=== PATIENT | female | born 1980 | race Caucasian/White ===

== ENCOUNTER → 2020-09-05 | Outpatient (CLI) | payer MEDICAID ==
[2020-09-05 14:59] LABS: Basophils # (A) 0.06 X 10*3/uL (0.00-0.10); Basophils % (A) 0.7 %; Eosinophils # (A) 0.33 X 10*3/uL (0.04-0.35); Eosinophils % (A) 3.6 %; HGB 12.8 g/dL (12.0-15.0); Lymphocytes # (A) 1.87 X 10*3/uL (0.90-5.00); Lymphocytes % (A) 20.5 %; MCH 30.7 pg (27.0-32.0); MCHC 32.8 g/dL (32.0-37.0); MCV 93.5 fL (80.0-97.0); Mean Platelet Volume 11.4 fL (9.5-12.2); Monocytes # (A) 0.42 X 10*3/uL (0.20-1.00); Monocytes % (A) 4.6 %; Neutrophils # (A) 6.42 X 10*3/uL (1.80-7.70); Neutrophils % (A) 70.4 %; Platelet Count 268 X 10*3/uL (140-440); RBC 4.17 X 10*6/uL (4.10-5.20); RDW 12.9 % (11.5-14.5); WBC 9.12 X 10*3/uL (4.50-10.00)
[2020-09-05 15:42] LABS: African American GFR (CKD) 93.4 (60.0-200.0); Albumin 4.5 g/dL (3.80-4.90); Albumin/Globulin Ratio 1.8 (1.60-3.17); Anion Gap 6.5 mmol/L (4.00-12.00); BUN/Creat Ratio 16.67 Ratio (12.00-20.00); Calcium 9.3 mg/dL (8.7-10.3); Carbon Dioxide 27.5 mmol/L (21.6-31.8); Chol/HDL Ratio 3.33; Globulin 2.5 g/dL (1.6-3.3); LDL Cholesterol,Calculated 120.8 mg/dL (0.0-131.0); Non-African American GFR(CKD) 80.5 (60.0-200.0); Potassium 4.6 mmol/L (3.5-5.5); Total Bilirubin 0.5 mg/dL (0.3-1.2); VLDL Calculation 14.2 mg/dL (5.00-40.00)
== END | disposition home or self-care (01) ==
LOC: LABWHC1 08:48
PROVIDERS: ATTEND Family Medicine
DX: Z00.00 Encounter for general adult medical examination without abnormal findings (principal)
CPT/HCPCS: 36415; 80053; 80061; 84443; 85025

== ENCOUNTER → 2020-10-05 | Outpatient (CLI) | payer MEDICAID ==
[2020-10-06 00:43] LABS: ALT 21 U/L (8-44); AST 19 U/L (13-35); African American GFR (CKD) 107.6 (60.0-200.0); Alkaline Phosphatase 44 U/L (41-126); BUN/Creat Ratio 23.75 Ratio (12.00-20.00); C Reactive Protein <0.4 mg/dL (0.0-0.8); Calcium 9.4 mg/dL (8.7-10.3); Carbon Dioxide 25.4 mmol/L (21.6-31.8); Chloride 105 mmol/L (96-109); Globulin 2.3 g/dL (1.6-3.3); Glucose 120 mg/dL (70-110); Non-African American GFR(CKD) 92.9 (60.0-200.0); Potassium 4.2 mmol/L (3.5-5.5); Sodium 140 mmol/L (135-145); Total Bilirubin 0.6 mg/dL (0.3-1.2); Total Protein 6.9 g/dL (6.2-8.2)
[2020-10-06 03:28] LABS: Hepatitis A Antibody IgM Non-Reactive (Non-Reactive); Hepatitis B Core IgM Non-Reactive (Non-Reactive); Hepatitis B Surface Antigen Non-Reactive (Non-Reactive); Hepatitis C IgG Antibody Non-Reactive (Non-Reactive)
[2020-10-06 03:53] LABS: Basophils # (A) 0.04 X 10*3/uL (0.00-0.10); Basophils % (A) 0.4 %; Eosinophils # (A) 0.29 X 10*3/uL (0.04-0.35); HCT 40.1 % (37.2-46.3); HGB 12.5 g/dL (12.0-15.0); Lymphocytes # (A) 2.31 X 10*3/uL (0.90-5.00); Lymphocytes % (A) 23.8 %; MCH 30.5 pg (27.0-32.0); MCHC 31.2 g/dL (32.0-37.0); MCV 97.8 fL (80.0-97.0); Mean Platelet Volume 11.7 fL (9.5-12.2); Monocytes # (A) 0.53 X 10*3/uL (0.20-1.00); Monocytes % (A) 5.5 %; Neutrophils # (A) 6.49 X 10*3/uL (1.80-7.70); Platelet Count 241 X 10*3/uL (140-440); WBC 9.69 X 10*3/uL (4.50-10.00)
[2020-10-06 05:01] LABS: Erythrocyte Sedimentation Rate 13 mm/Hr (0-20)
== END | disposition home or self-care (01) ==
LOC: LABWHC1 12:20
PROVIDERS: ATTEND Physician Assistant
DX: K50.90 Crohn's disease, unspecified, without complications (principal)
CPT/HCPCS: 36415; 80053; 80074; 85025; 85652; 86140; 86480

== ENCOUNTER 2020-11-24 10:07 | Emergency (ER) | payer MEDICAID ==
[2020-11-24 10:15] VITALS: RESP 18
[2020-11-24] MEDS ORDERED: SODIUM CHLORIDE 0.9% 1,000 ML IV STA (10:51)
--- NOTE | 2020-11-24 11:03 | ED ---
Female Urogenital HPI - General Chief complaint: Vaginal Bleeding Stated complaint: Miscarriage Time Seen by Provider: 11/24/20 10:40 Source: patient, RN notes reviewed Mode of arrival: ambulatory Limitations: no limitations - History of Present Illness Initial comments: 40-year-old white female presents to the emergency room with complaints of cramping last night with vaginal bleeding this morning. Patient states she took a test on and it was positive. Her last menstrual period was October 18. Patient in the past has tried fertility treatments and was unsuccessful. Patient states by date she is approximately 5 and half weeks . The bleeding is not severe and patient is only wearing a panty liner, but more than spotting. She states walking makes the pain worse with laying flat makes it better. She has not passed any tissue. Reports some nausea, denies any vomiting or diarrhea denies any hematochezia or hematemesis Patient states she has a history of Crohn's disease with a bowel resection in 2000. Patient states recently started her Remicade last week. Sees Dr. Barrios for GI issues. He denies current smoking or drinking history MD Complaint: vaginal bleeding -: hour(s) (this morning) Severity scale (1-10): 6 Quality: cramping Consistency: intermittent Worsens with: movement (Came standing) Last Menstrual Period: 10/18/20 Patient : Yes Number of weeks : 5 (Confirmed) Associated Symptoms: denies other symptoms - Related Data Sexually active: Yes (P in home tests) Home Medications Medication Instructions Recorded Confirmed No Known Home Medications 11/24/20 11/24/20 Allergies Allergy/AdvReac Type Severity Reaction Status Date / Time No Known Allergies Allergy Verified 11/24/20 11:34 Review of Systems ROS Statement: Those systems with pertinent positive or pertinent negative responses have been documented in the HPI. ROS Other: All systems not noted in ROS Statement are negative. Past Medical History Additional Past Medical History / Comment(s): chrohns History of Any Multi-Drug Resistant Organisms: None Reported Past Surgical History: Bowel Resection Past Psychological History: No Psychological Hx Reported Smoking Status: Light tobacco smoker Past Alcohol Use History: Occasional Past Drug Use History: None Reported General Exam Limitations: no limitations General appearance: alert, in no apparent distress Head exam: Present: atraumatic, normocephalic, normal inspection Eye exam: Present: normal appearance, PERRL, EOMI. Absent: scleral icterus, conjunctival injection, periorbital swelling ENT exam: Present: normal exam, normal oropharynx, mucous membranes moist Neck exam: Present: normal inspection, full ROM. Absent: tenderness, meningismus, lymphadenopathy, thyromegaly Respiratory exam: Present: normal lung sounds bilaterally. Absent: respiratory distress, wheezes, rales, rhonchi, stridor, chest wall tenderness, accessory muscle use, decreased breath sounds Cardiovascular Exam: Present: regular rate, normal rhythm, normal heart sounds. Absent: systolic murmur, diastolic murmur, rubs, gallop, clicks GI/Abdominal exam: Present: soft, tenderness, normal bowel sounds. Absent: distended, guarding, rebound, rigid, mass Rectal exam: Absent: deferred External exam: Present: normal external exam. Absent: erythema, swelling, lesions, lacerations, ecchymosis Speculum exam: Present: vaginal bleeding, other (Cervical os open, small amount of bleeding noted, no tissue no clots). Absent: erythema, foreign body, tissue, laceration Extremities exam: Present: normal inspection, full ROM, normal capillary refill. Absent: tenderness, pedal edema, joint swelling, calf tenderness Back exam: Present: normal inspection, full ROM. Absent: tenderness, CVA tenderness (R), CVA tenderness (L) Neurological exam: Present: alert, oriented X3, CN II-XII intact Psychiatric exam: Present: normal affect, normal mood, other (Tearful) Skin exam: Present: warm, dry, intact, normal color. Absent: rash Course Vital Signs 11/24/20 11/24/20 10:10 12:55 Temperature 97.4 F L 98.3 F Pulse Rate 85 82 Respiratory 18 18 Rate Blood Pressure 141/94 120/83 O2 Sat by Pulse 100 97 Oximetry Medical Decision Making - Medical Decision Making Serum-HCG is 163.8, hemoglobin and hematocrit is 14 and 41 respectively. Ultrasound shows no gestational sac no yolk sac and no pole. Patient does have a history of a left ovarian cyst, which is remarked on ultrasound. Patient will be directed to follow for serial serum hCG days and referred to BUS TRANSPORTATION MANAGER. Patient's blood type is A positive, rhogam not indicated. Patient's pain is controlled and bleeding is minimal at time of discharge. - Lab Data Result diagrams: 11/24/20 11:15 11/24/20 11:15 Lab Results 11/24/20 11/24/20 11/24/20 Range/Units 11:15 11:15 11:15 WBC 15.3 H (3.8-10.6) k/uL RBC 4.55 (3.80-5.40) m/uL Hgb 14.0 (11.4-16.0) gm/dL Hct 41.4 (34.0-46.0) % MCV 90.9 (80.0-100.0) fL MCH 30.8 (25.0-35.0) pg MCHC 33.8 (31.0-37.0) g/dL RDW 12.6 (11.5-15.5) % Plt Count 263 (150-450) k/uL MPV 7.8 Neutrophils % 81 % Lymphocytes % 13 % Monocytes % 3 % Eosinophils % 2 % Basophils % 0 % Neutrophils # 12.4 H (1.3-7.7) k/uL Lymphocytes # 2.0 (1.0-4.8) k/uL Monocytes # 0.5 (0-1.0) k/uL Eosinophils # 0.3 (0-0.7) k/uL Basophils # 0.1 (0-0.2) k/uL PT 10.4 (9.0-12.0) sec INR 1.0 (<1.2) Sodium 140 (137-145) mmol/L Potassium 4.2 (3.5-5.1) mmol/L Chloride 106 (98-107) mmol/L Carbon Dioxide 23 (22-30) mmol/L Anion Gap 11 mmol/L BUN 21 H (7-17) mg/dL Creatinine 0.77 (0.52-1.04) mg/dL Est GFR (CKD-EPI)AfAm >90 (>60 ml/min/1.73 sqM) Est GFR (CKD-EPI)NonAf >90 (>60 ml/min/1.73 sqM) Glucose 90 (74-99) mg/dL Calcium 9.3 (8.4-10.2) mg/dL Magnesium 1.9 (1.6-2.3) mg/dL Total Bilirubin 0.6 (0.2-1.3) mg/dL AST 26 (14-36) U/L ALT 19 (4-34) U/L Alkaline Phosphatase 46 (38-126) U/L Total Protein 8.0 (6.3-8.2) g/dL Albumin 4.8 (3.5-5.0) g/dL HCG, Quant 163.8 mIU/mL Urine HCG, Qual (Not Detectd) Blood Type Blood Type Recheck Bld Type Recheck Status Antibody Screen Spec Expiration Date 11/24/20 11/24/20 Range/Units 11:15 11:15 WBC (3.8-10.6) k/uL RBC (3.80-5.40) m/uL Hgb (11.4-16.0) gm/dL Hct (34.0-46.0) % MCV (80.0-100.0) fL MCH (25.0-35.0) pg MCHC (31.0-37.0) g/dL RDW (11.5-15.5) % Plt Count (150-450) k/uL MPV Neutrophils % % Lymphocytes % % Monocytes % % Eosinophils % % Basophils % % Neutrophils # (1.3-7.7) k/uL Lymphocytes # (1.0-4.8) k/uL Monocytes # (0-1.0) k/uL Eosinophils # (0-0.7) k/uL Basophils # (0-0.2) k/uL PT (9.0-12.0) sec INR (<1.2) Sodium (137-145) mmol/L Potassium (3.5-5.1) mmol/L Chloride (98-107) mmol/L Carbon Dioxide (22-30) mmol/L Anion Gap mmol/L BUN (7-17) mg/dL Creatinine (0.52-1.04) mg/dL Est GFR (CKD-EPI)AfAm (>60 ml/min/1.73 sqM) Est GFR (CKD-EPI)NonAf (>60 ml/min/1.73 sqM) Glucose (74-99) mg/dL Calcium (8.4-10.2) mg/dL Magnesium (1.6-2.3) mg/dL Total Bilirubin (0.2-1.3) mg/dL AST (14-36) U/L ALT (4-34) U/L Alkaline Phosphatase (38-126) U/L Total Protein (6.3-8.2) g/dL Albumin (3.5-5.0) g/dL HCG, Quant mIU/mL Urine HCG, Qual Detected (Not Detectd) Blood Type A Positive Blood Type Recheck No Previous Record Bld Type Recheck Status CABO Indicated Antibody Screen NEGATIVE Spec Expiration Date 11/27/20202314 Disposition Clinical Impression: Threatened Disposition: HOME SELF-CARE Condition: Good Instructions (If sedation given, give patient instructions): Threatened Miscarriage (ED) Additional Instructions: Follow-up with BUS TRANSPORTATION MANAGER this week and have blood work serum hCG redrawn in 2 days. Return if increased bleeding or pain. Is patient prescribed a controlled substance at d/c from ED?: No Referrals: Brad Cho MD [Primary Care Provider] - 1-2 days Manda López DO [Doctor of Osteopathic Medicine] - 1-2 days Time of Disposition: 13:10
[2020-11-24 11:29] LABS: Basophils # (A) 0.1 k/uL (0-0.2); Basophils % (A) 0 %; Eosinophils # (A) 0.3 k/uL (0-0.7); Eosinophils % (A) 2 %; HCT 41.4 % (34.0-46.0); Lymphocytes % (A) 13 %; MCH 30.8 pg (25.0-35.0); MCHC 33.8 g/dL (31.0-37.0); MCV 90.9 fL (80.0-100.0); Mean Platelet Volume 7.8; Monocytes # (A) 0.5 k/uL (0-1.0); Monocytes % (A) 3 %; Neutrophils # (A) 12.4 k/uL (1.3-7.7); Neutrophils % (A) 81 %; Platelet Count 263 k/uL (150-450); RBC 4.55 m/uL (3.80-5.40); RDW 12.6 % (11.5-15.5); WBC 15.3 k/uL (3.8-10.6)
[2020-11-24 12:00] LABS: ALT 19 U/L (4-34); AST 26 U/L (14-36); African American GFR (CKD) >90 (>60 ml/min/1.73 sqM); Albumin 4.8 g/dL (3.5-5.0); Alkaline Phosphatase 46 U/L (38-126); Anion Gap 11 mmol/L; Blood Urea Nitrogen 21 mg/dL (7-17); Calcium 9.3 mg/dL (8.4-10.2); Carbon Dioxide 23 mmol/L (22-30); Chloride 106 mmol/L (98-107); Glucose 90 mg/dL (74-99); Magnesium 1.9 mg/dL (1.6-2.3); Non-African American GFR(CKD) >90 (>60 ml/min/1.73 sqM); Potassium 4.2 mmol/L (3.5-5.1); Sodium 140 mmol/L (137-145); Total Bilirubin 0.6 mg/dL (0.2-1.3)
[2020-11-24 12:16] LABS: HCG,Quantitative Serum 163.8 mIU/mL; Prothrombin Time 10.4 sec (9.0-12.0)
--- NOTE | 2020-11-24 12:33 | US ---
EXAMINATION TYPE: Transabdominal DATE OF EXAM: 11/24/2020 12:14 PM COMPARISON: NONE CLINICAL HISTORY: vaginal bleeding. EXAM PERFORMED: Transvaginal (TV) and Transabdominal (TA) EXAM MEASUREMENTS: GESTATIONAL AGE / DATING Physician Established: Not yet established Dates by LMP: ( 5 weeks/2 days) EDC: 07-25-2021 Dates by First Scan: No previous this is first scan Dates by Current Scan for: Unable to date by today's study MATERNAL ANATOMY Uterus: 8.7 x 3.4 x 5.4cm Right Ovary: 2.3 x 1.4 x 1.8cm Left Ovary: large septated cystic structure in cul de sac may be left ovary, measures 13.1 x 6.2 x 7. 3cm Post CDS / Adnexa: see above Presence of free fluid: no Presence of corpus luteal cyst: no Presence of subchorionic bleed: no GESTATION / SURVEY IUP: No IUP seen at this time Date of LMP: 10-18-20 Beta HcG (if available): 163 Heterogeneous anteverted uterus with endometrium only measures 3 mm in thickness. No gestational sac, yolk sac, or pole seen. Right ovary is seen and normal in size. Normal left ovary not identified. There is abnormality in the pelvic cul-de-sac with either nonsimple fluid or cystic lesion with thin wall and thin septa that is not completely anechoic measuring at least 13 cm long axis. Because of size it cannot be fully evalu ated on ultrasound. IMPRESSION: Findings could reflect intrauterine demise or too early to visualize intrauterine pregnan cy, ectopic not entirely excluded. Serial beta hCG and ultrasound follow-up is advised. Can not exclude blood products into the pelvic cul-de-sac, correlate clinically. Advise short-term follow -up CT and/or MRI imaging to rule out cystic left ovarian mass once possible is more defini tively assessed.
[2020-11-24 12:58] VITALS: BP 120/83; PULSE 82; TEMP 98.3
== END 2020-11-24 14:03 | disposition home or self-care (01) ==
LOC: EC 10:07
DX: O20.0 Threatened abortion (principal); O09.511 Supervision of elderly primigravida, first trimester; O99.331 Smoking (tobacco) complicating pregnancy, first trimester; F17.200 Nicotine dependence, unspecified, uncomplicated; Z3A.01 Less than 8 weeks gestation of pregnancy
CPT/HCPCS: 36415; 76801; 76817; 80053; 81025; 83735; 84702; 85025; 85610; 86850; 86900; 86901; 99284

== ENCOUNTER → 2020-11-27 | Outpatient (CLI) | payer MEDICAID | END | disposition home or self-care (01) | LOC: LABMAIN 09:20 | PROVIDERS: ATTEND Nurse Practitioner Family | DX: O20.0 Threatened abortion (principal); Z3A.00 Weeks of gestation of pregnancy not specified | CPT/HCPCS: 36415; 84702 ==

== ENCOUNTER → 2021-05-01 | Outpatient (CLI) | payer MEDICAID ==
[2021-05-01 19:59] LABS: Basophils # (A) 0.04 X 10*3/uL (0.00-0.10); Basophils % (A) 0.4 %; Eosinophils # (A) 0.38 X 10*3/uL (0.04-0.35); Eosinophils % (A) 3.3 %; HCT 39.9 % (37.2-46.3); HGB 13.1 g/dL (12.0-15.0); Lymphocytes # (A) 2.78 X 10*3/uL (0.90-5.00); Lymphocytes % (A) 24.5 %; MCHC 32.8 g/dL (32.0-37.0); MCV 91.3 fL (80.0-97.0); Mean Platelet Volume 11.5 fL (9.5-12.2); Monocytes # (A) 0.67 X 10*3/uL (0.20-1.00); Monocytes % (A) 5.9 %; Neutrophils # (A) 7.46 X 10*3/uL (1.80-7.70); Neutrophils % (A) 65.5 %; Platelet Count 271 X 10*3/uL (140-440); RBC 4.37 X 10*6/uL (4.10-5.20); RDW 12.5 % (11.5-14.5); WBC 11.37 X 10*3/uL (4.50-10.00)
[2021-05-01 20:36] LABS: African American GFR (CKD) 107.6 (60.0-200.0); Albumin 4.6 g/dL (3.8-4.9); Albumin/Globulin Ratio 1.7 (1.60-3.17); Anion Gap 13.5 mmol/L (4.00-12.00); BUN/Creat Ratio 21.75 Ratio (12.00-20.00); Blood Urea Nitrogen 17.4 mg/dL (9.0-27.0); Calcium 9.2 mg/dL (8.7-10.3); Carbon Dioxide 23.5 mmol/L (21.6-31.8); Globulin 2.7 g/dL (1.6-3.3); Non-African American GFR(CKD) 92.9 (60.0-200.0); Potassium 4.5 mmol/L (3.5-5.5); Total Bilirubin 0.2 mg/dL (0.30-1.20); Total Protein 7.3 g/dL (6.2-8.2)
== END | disposition home or self-care (01) ==
LOC: LABWHC1 12:13
PROVIDERS: ATTEND Internal Medicine Cardiovascular Disease
DX: K50.90 Crohn's disease, unspecified, without complications (principal)
CPT/HCPCS: 36415; 80053; 85025

== ENCOUNTER 2021-05-05 06:58 | Day surgery (SDC) | payer MEDICAID ==
[2021-05-03 12:43] VITALS: BMI 29.9
[~2021-05-05 06:58] MED LIST: LACTATED RINGERS 1,000 ML IV SCH
[2021-05-05] MEDS ORDERED: LACTATED RINGERS 1,000 ML IV ONE (07:05)
[2021-05-05] MEDS ORDERED: ONDANSETRON 4 MG/2 ML VIAL ONE (07:16)
[2021-05-05] MEDS ORDERED: ONDANSETRON 4 MG/2 ML VIAL IVP ONE (07:20)
[2021-05-05] MEDS ORDERED: PROPOFOL 10 MG/ML 20 ML VIAL IV ONE (07:46)
[2021-05-05] MEDS ORDERED: LIDOCAINE 1% INJ 10MG/ML (20 ML MDV) ONE (07:46)
--- NOTE | 2021-05-05 08:08 | P.PCN ---
Date of Procedure: 05/05/21 Procedure(s) Performed: BRIEF HISTORY: Patient is a 40-year-old pleasant white female scheduled for an elective colonoscopy as a part of evaluation of long-standing history of Crohn's disease diagnosed in 2000. She underwent terminal ileal resection have a diagnosis. She is been maintained on Remicade infusions since 2014 and remains in clinical remission. PROCEDURE PERFORMED: Colonoscopy. PREOPERATIVE DIAGNOSIS: Long-standing history of Crohn's ileitis. IV sedation per Anesthesia. PROCEDURE: After informed consent was obtained, the patient, was brought into the endoscopy unit. IV sedation was administered by Anesthesia under continuous monitoring. Digital rectal examination was normal. Initially the Olympus CF-160 flexible video colonoscope was then inserted in the rectum, gradually advanced into the right colon with the liquid anastomosis was visualized and appeared normal. It was widely patent. Distal ileum was visualized which appeared normal. Prep was excellent. Mucosa of the, ascending colon, transverse colon, descending colon, sigmoid colon, and rectum appeared normal. Retroflexion was performed in the rectum and no lesions were seen. The patient tolerated the procedure well. IMPRESSION: Normal-appearing colon from rectum to a liquid anastomosis in the right colon with no evidence of active Crohn's disease RECOMMENDATIONS: Findings of this examination were discussed with the patient as well as her family. She was advised to have a repeat colonoscopy in 5 ye ars..
[2021-05-05 08:19] VITALS: RESP 16
[2021-05-05 08:37] VITALS: BP 118/79; PULSE 64
== END 2021-05-05 08:50 | disposition home or self-care (01) ==
LOC: ORWHC2ENDO 06:58
PROVIDERS: ATTEND Internal Medicine Gastroenterology
DX: K50.00 Crohn's disease of small intestine without complications (principal)
CPT/HCPCS: 45378; 81025; J2405; J2001; J2704

== ENCOUNTER → 2021-10-31 | Outpatient (CLI) | payer MEDICAID, OTHER ==
--- NOTE | 2021-10-31 20:40 | US ---
EXAMINATION TYPE: US pelvic complete DATE OF EXAM: 10/31/2021 COMPARISON: 11/24/2020 CLINICAL HISTORY: 41-year-old female R10.2 PELVIC PAIN N83.0 OVARIAN CYST. Right pelvic pain, 1, miscarriage 1, known left ovarian cyst TECHNIQUE: . Transabdominal sonographic images of the pelvis were acquired. Date of LMP: 10/16/2021 FINDINGS: EXAM MEASUREMENTS: Uterus: 8.7 x 3.5 x 4.1 cm Endometrial Stripe: 0.8 cm Right Ovary: 2.9 x 1.7 x 2.3 cm Left Ovary: 11.3 x 6.1 x 4.9 cm 1. Uterus: anteverted and otherwise within normal limits 2. Endometrium: appears wnl 3. Right Ovary: wnl 4. Left Ovary: Either 2 adjacent simple cysts measuring 5.5cm and 6.0cm versus a larger thinly septa leah cyst. 5. Bilateral Adnexa: wnl 6. Posterior cul-de-sac: wnl IMPRESSION: Either 2 adjacent simple cysts measuring 6.0 and 5.5 cm within the left ovary versus a larger, thinly septated cyst. Recommend follow-up ultrasound in 3 months to reassess. The ultrasound of 11/24/2020 se ems to have demonstrated a similar structure but it seems to have been larger at that time. If the fi nding persists, a serous cystadenoma, likely benign, is not excluded.
== END | disposition home or self-care (01) ==
LOC: RADUSWWP 12:15
PROVIDERS: ATTEND Obstetrics & Gynecology
DX: N83.202 Unspecified ovarian cyst, left side (principal)
CPT/HCPCS: 76856

== ENCOUNTER → 2021-11-22 | Outpatient (CLI) | payer MEDICAID ==
[2021-11-22 22:31] LABS: Basophils # (A) 0.06 X 10*3/uL (0.00-0.10); Basophils % (A) 0.5 %; Eosinophils # (A) 0.49 X 10*3/uL (0.04-0.35); Eosinophils % (A) 3.7 %; HCT 36.8 % (37.2-46.3); HGB 11.9 g/dL (12.0-15.0); Immature Grans, Automated 0.3 %; Lymphocytes # (A) 4.13 X 10*3/uL (0.90-5.00); Lymphocytes % (A) 31.5 %; MCH 29.9 pg (27.0-32.0); MCHC 32.3 g/dL (32.0-37.0); MCV 92.5 fL (80.0-97.0); Mean Platelet Volume 11.7 fL (9.5-12.2); Monocytes # (A) 0.87 X 10*3/uL (0.20-1.00); Monocytes % (A) 6.6 %; NRBC Per 100 WBC 0 /100 WBCS (0.0-0.0); Neutrophils # (A) 7.52 X 10*3/uL (1.80-7.70); Neutrophils % (A) 57.4 %; Platelet Count 229 X 10*3/uL (140-440); RBC 3.98 X 10*6/uL (4.10-5.20); RDW 12.8 % (11.5-14.5); WBC 13.11 X 10*3/uL (4.50-10.00)
== END | disposition home or self-care (01) ==
LOC: LABPAT 16:17
PROVIDERS: ATTEND Obstetrics & Gynecology
DX: Z01.812 Encounter for preprocedural laboratory examination (principal)
CPT/HCPCS: 85025

== ENCOUNTER 2021-11-30 06:21 | Day surgery (SDC) | payer MEDICAID, OTHER ==
[2021-11-28 15:37] VITALS: BMI 29.1
--- NOTE | 2021-11-29 16:33 | P.HPOB ---
History of Present Illness H&P Date: 11/29/21 Chief Complaint: pelvic pain, menorrhagia 41 year old presents for D&C hysteroscopy, endometrial ablation with novasure, laparoscopic aspiration of ovarian cyst using da franco and possible excision of endometriosis. Review of Systems All systems: negative Constitutional: Denies chills, Denies fever Eyes: denies blurred vision, denies pain Ears, nose, mouth and throat: Denies headache, Denies sore throat Cardiovascular: Denies chest pain, Denies shortness of breath Respiratory: Denies cough Gastrointestinal: Denies abdominal pain, Denies diarrhea, Denies nausea, Denies vomiting Genitourinary: Denies dysuria, Denies hematuria Musculoskeletal: Denies myalgias Integumentary: Denies pruritus, Denies rash Neurological: Denies numbness, Denies weakness Psychiatric: Denies anxiety, Denies depression Endocrine: Denies fatigue, Denies weight change Past Medical History Additional Past Medical History / Comment(s): Chrohns. History of Any Multi-Drug Resistant Organisms: None Reported Past Surgical History: Bowel Resection Past Anesthesia/Blood Transfusion Reactions: Motion Sickness Past Psychological History: No Psychological Hx Reported Smoking Status: Former smoker, Light tobacco smoker Past Alcohol Use History: Occasional Additional Past Alcohol Use History / Comment(s): Quit smoking 7-8 yrs ago, smoked for 20 yrs, socially. Past Drug Use History: None Reported - Past Family History Father Family Medical History: Cancer Additional Family Medical History / Comment(s): Prostate cancer. Medications and Allergies Home Medications Medication Instructions Recorded Confirmed Type Infliximab-Dyyb [Inflectra] 100 mg IV Q56D 05/03/21 11/28/21 History Allergies Allergy/AdvReac Type Severity Reaction Status Date / Time No Known Allergies Allergy Verified 11/28/21 15:39 Exam Osteopathic Statement: *. No significant issues noted on an osteopathic structural exam other than those noted in the History and Physical/Consult. HEart: RRR Lungs: CTAB Abdomen: soft, nontender Extremeties: neg anshul's Assessment and Plan (1) Pelvic pain Status: Acute Code(s): R10.2 - PELVIC AND PERINEAL PAIN SNOMED Code(s): 05711428 (2) Ovarian cyst Status: Acute Code(s): N83.209 - UNSPECIFIED OVARIAN CYST, UNSPECIFIED SIDE SNOMED Code(s): 97159021 (3) Menorrhagia Status: Acute Code(s): N92.0 - EXCESSIVE AND FREQUENT MENSTRUATION WITH REGULAR CYCLE SNOMED Code(s): 262368500 Plan: 1. D&C hysteroscopy, endometrial ablation with NovaSure. LAparoscopic aspiration of ovarian cyst using da franco and possible resection of endometriosis.
[~2021-11-30 06:21] MED LIST changes: -LACTATED RINGERS 1,000 ML IV SCH; +Pre Op ABX Message 1 EACH MISC MISCELLANE ONE
[2021-11-30] MEDS ORDERED: ONDANSETRON 4 MG/2 ML VIAL IVP ONE ×2 (06:48→10:42)
[2021-11-30] MEDS ORDERED: DEXAMETHASONE SOD PHOSPHATE 4 MG/ML 1 ML VIAL IV ONE (06:48)
[2021-11-30] MEDS ORDERED: LACTATED RINGERS 1,000 ML IV SCH (06:48)
[2021-11-30] MEDS ORDERED: SCOPOLAMINE 1 MG/72 HR PATCH TRANSDERM ONE (07:06)
[2021-11-30] MEDS ORDERED: LIDOCAINE 1% (10MG/ML) FOR IV START INTRADERMA ONE (07:07)
[2021-11-30] MEDS ORDERED: INDOCYANINE GREEN 25 MG VIAL IV ONE (07:31)
[2021-11-30] MEDS ORDERED: ROCURONIUM 10 MG/ML (5 ML VIAL) IV ONE (07:31)
[2021-11-30] MEDS ORDERED: NEOSTIGMINE 1 MG/ML 10 ML VIAL ONE (07:31)
[2021-11-30] MEDS ORDERED: MIDAZOLAM 2 MG/2 ML VIAL ONE (07:31)
[2021-11-30] MEDS ORDERED: PROPOFOL 10 MG/ML 20 ML VIAL IV ONE (07:31)
[2021-11-30] MEDS ORDERED: GLYCOPYRROLATE 0.2 MG/ML 2 ML VIAL ONE (07:31)
[2021-11-30] MEDS ORDERED: fentaNYL (PF) 50 MCG/ML 2 ML AMP ONE (07:31)
[2021-11-30] MEDS ORDERED: KETOROLAC 15 MG/ML 1 ML VIAL ONE (07:31)
[2021-11-30] MEDS ORDERED: LIDOCAINE 2% INJ 20 MG/ML (2 ML VIAL) ONE (07:31)
[2021-11-30] MEDS ORDERED: HYDROmorphone (PF) 1 MG/ML ONE (07:31)
[2021-11-30] MEDS ORDERED: SUCCINYLCHOLINE CHLORIDE 100 MG/5 ML SYR IV ONE (07:31)
[2021-11-30] MEDS ORDERED: BUPIVACAINE (PF) 0.25% 30 ML VIAL SQ ONE ×2 (08:20→09:17)
[2021-11-30] MEDS ORDERED: CELLULOSE,OXIDIZED 1 EACH EACH MISCELLANE ONE (09:02)
[2021-11-30 09:37] VITALS: TEMP 97.1
[2021-11-30] MEDS: HYDROmorphone 0.5 MG/0.5 ML SYRINGE IVP PRN ×3 (09:42→10:05)
[2021-11-30] MEDS ORDERED: ONDANSETRON 4 MG/2 ML VIAL ONE (10:41)
--- NOTE | 2021-11-30 11:01 | P.OP ---
Date of Procedure: 11/30/21 Preoperative Diagnosis: 1. Menorrhagia 2. Pelvic pain 3. Ovarian cyst Postoperative Diagnosis: 1. Menorrhagia 2. Pelvic pain 3. Ovarian cyst: Endometrioma 4. Endometriosis 5. Omental adhesions Procedure(s) Performed: D&C, hysteroscopy, endometrial ablation with NovaSure; operative laparoscopy using da Nita with aspiration of left ovarian cyst and excision of endometriosis with lysis of omental adhesions and placement of Interceed Anesthesia: YUMI Surgeon: Melissa Sands Estimated Blood Loss (ml): 5 IV fluids (ml): 500 Urine output (ml): 40 Pathology: other (Peritoneum/endometriosis) Condition: stable Disposition: PACU Operative Findings: Large multiloculated left ovarian cyst. Omental adhesions to the anterior pelvic wall. Uterus sounded to 8 cm, cavity length 5 cm, cavity width 2.5 cm with adequate ablation after NovaSure. Description of Procedure: Patient is taken the operating room where general anesthesia was obtained without difficulty. She was prepped and draped in normal sterile fashion dorsal lithotomy position, legs placed in the Nacho stirrups. Bladder was drained of all urine. Weighted speculum placed in the vagina and the anterior lip the cervix was grasped with serial tooth tenaculum. The uterus sounded to 8 cm and the cervix under 3 cm making the cavity length 5 cm. The cervix was dilated to #8 Hegar dilator. Hysteroscopy was then performed. Both ostia were visualized and there was a smooth contour of the uterus. Sharp curet was then gently used to obtain endometrial curettings. The NovaSure was introduced into the uterus with a cavity length of 5 cm, width 2.5 cm. after cavity assessment was passed, the time of ablation was 56 seconds at [address]. Hysteroscopy was again performed and adequate ablation was noted. All instruments removed from the vagina. The kroner manipulator was then placed. Attention was then turned to the abdomen and gloves were changed. A 5 mm supraumbilical incision was made the scalpel and a 5 mm optical trocar was placed under direct visualization. 10 cm to the right of this and 2 cm down a 5 mm incision was made and 8 mm da Nita port was placed under direct visualization. Same measurements on the opposite side of the patient's abdomen, the 5 mm incision was made and 8 mm da Nita port was placed under direct visualization. In the left upper quadrant a 10 mm incision was made and a 10 mm optical trocar was placed under direct visualization. The 5 mm optical trocar was then replaced with the 8 mm da Nita camera port. The robot was docked on patient's left side. The camera was introduced and then the monopolar curved scissor and fenestrated bipolar placed under direct visualization. I broke scrub and went to the physician console. Survey of the pelvis revealed a large amount of omental adhesions the anterior pelvic wall covering the uterus and ovaries. This was taken down in a blunt manner, and with sharp dissection with minimal cautery. Excellent hemostasis was achieved. I could see endometriosis over the right and left pelvic sidewall there was a large multiloculated cyst in the left ovary. A large hole was made in the left ovary and initially clear fluid was drained. Another hole was made and another area of the cyst on that same ovary and endometriosis poured out from this chocolate cyst. This was drained using the suction veneer department manager. Excellent hemostasis was achieved here as well and the holes in the cysts were large enough that I do not feel this will reaccumulate. The left ovary was tucked behind the uterus and the posterior cul-de-sac. Endometriosis was seen in the left and right pelvic sidewall adjacent to the bladder. A Majano was used to made at these areas in a better fashion. Carefully dissected out the peritoneum where the endometriosis was visible. The peritoneum was removed through the shipping and receiving assistant port. 2 pieces of Interceed were placed first over the area where the omental adhesions were near the bladder and the anterior pelvic wall and then on the left near the ovary and the placed correct the peritoneum from the endometriosis. All instruments were then removed from the abdomen and the pelvis. The abdominal incisions were closed with 4-0 Vicryl in a subcuticular fashion. Patient tolerated the procedure well, sponge and instrument counts correct 2 and she was taken to recovery room in stable condition.
[2021-11-30 12:12] VITALS: BP 131/74; PULSE 75; RESP 16
== END 2021-11-30 12:42 | disposition home or self-care (01) ==
LOC: OR 06:21
PROVIDERS: ATTEND Obstetrics & Gynecology
DX: N80.3 Endometriosis of pelvic peritoneum (principal); N80.1 Endometriosis of ovary; N83.209 Unspecified ovarian cyst, unspecified side; N92.0 Excessive and frequent menstruation with regular cycle; K50.90 Crohn's disease, unspecified, without complications; F17.200 Nicotine dependence, unspecified, uncomplicated; K21.9 Gastro-esophageal reflux disease without esophagitis; Z90.49 Acquired absence of other specified parts of digestive tract; Z79.899 Other long term (current) drug therapy; Z80.42 Family history of malignant neoplasm of prostate
CPT/HCPCS: 81025; 88305; 58563; 49322; 58662; J2250; J1100; J2710; J2405; J3010; J1170 ×2; J1885; J0330; J2704; J1790; J2001